=== PATIENT | male | born 1950 | race Caucasian/White ===

== ENCOUNTER 2017-01-13 07:58 | Emergency (ER) | payer OTHER ==
[~2017-01-13] VITALS: Ht 172.7 cm; Wt 61.2 kg
[~2017-01-13 07:58] MED LIST: DIAZ10TA PO; HYDR-1421 PO
[2017-01-13] MEDS ORDERED: MORPHINE SULFATE 4 MG/ML SYRG ONE ×2 (08:43→12:12)
[2017-01-13] MEDS ORDERED: MORPHINE SULFATE 4 MG/ML SYRG IM ONE (08:45)
[2017-01-13 10:01] LABS: DEFINITIVE VIEW TRANSMISSION; Hematocrit 34.7 % (41.0-53.0); Hemoglobin 11.2 g/dL (13.5-17.5); Mean Corpuscular Hemoglobin 33.1 pg (28.0-32.0); Mean Corpuscular Hgb Conc. 32.2 g/dL (32.0-36.0); Mean Platelet Volume 7.9 fL (7.4-10.4); Platelet Count (auto) 409 10^3/uL (140-450); Red Cell Distribution Width 17.3 % (11.6-16.0); SUSPECT VIEW TRANSMISSION; White Blood Cell 15.4 10^3/uL (4.4-10.8)
[2017-01-13 10:15] LABS: Albumin 2.5 g/dL (3.4-5.0); BUN/Creatinine Ratio 27.4; Bilirubin, Total 0.3 mg/dL (0.2-1.0); Calcium 7.9 mg/dL (8.5-10.1); Potassium 3.7 mmol/L (3.5-5.1); Total Protein 7.4 g/dL (6.4-8.2)
[2017-01-13 11:13] LABS: Metamyelocytes % 0; Myelocytes % 0; Promyelocytes % 0; Reactive Lymphocytes 0
[2017-01-13 11:17] LABS: Anisocytosis Slight; Burr Cells FEW; Macrocytosis Slight; Ovalocytes FEW; Platelet Estimate Adequate
[2017-01-13] MEDS ORDERED: MORPHINE SULFATE 4 MG/ML SYRG IV ONE (12:15)
[2017-01-13 12:20] VITALS: BP 98/52
== END 2017-01-13 15:35 | disposition home or self-care (01) ==
LOC: EDBD 07:58 → ER 07:58
DX: S42.212A Unspecified displaced fracture of surgical neck of left humerus, initial encounter for closed fracture (principal); M19.90 Unspecified osteoarthritis, unspecified site; J44.9 Chronic obstructive pulmonary disease, unspecified; R40.1 Stupor; W18.39XA Other fall on same level, initial encounter; Y93.89 Activity, other specified; Y92.098 Other place in other non-institutional residence as the place of occurrence of the external cause; Y99.8 Other external cause status
CPT/HCPCS: 36415; 70450; 73060; 80053; 85007; 85027; 94761; 96372; 96374; 99285; J2270

== ENCOUNTER 2020-06-11 10:46 | Inpatient (IN) | payer MEDICARE, OTHER ==
[~2020-06-11] VITALS: Ht 170.2 cm; Wt 66.0 kg
[~2020-06-11 10:46] MED LIST changes: -DIAZ10TA PO; -HYDR-1421 PO; +MIRT1TAB40 PO; +TAMS0.4C36 PO
[2020-06-11 11:39] LABS: Basophils # (auto) 0.1 10 ^3/uL (0-0.2); Eosinophils # (auto) 0.3 10 ^3/uL (0-0.8); Eosinophils % (auto) 3.2 % (0.0-7.0); Hematocrit 33.9 % (41.0-53.0); Lymphocytes # (auto) 2.5 10 ^3/uL (0.4-5.4); Lymphocytes % (auto) 26.8 % (10.0-50.0); Mean Corpuscular Hemoglobin 32.6 pg (28.0-32.0); Mean Corpuscular Hgb Conc. 32.5 g/dL (32.0-36.0); Mean Corpuscular Volume 100.3 fL (80.0-100.0); Monocytes # (auto) 0.6 10 ^3/uL (0-1.3); Monocytes % (auto) 6.8 % (0.0-12.0); Neutrophils # (auto) 5.7 10 ^3/uL (1.6-8.6); Neutrophils % (auto) 62.2 % (37.0-80.0); Platelet Count (auto) 337 10^3/uL (140-450); Red Blood Cells 3.38 10^6/uL (4.5-5.90); White Blood Cell 9.2 10^3/uL (4.4-10.8)
[2020-06-11 11:49] LABS: Albumin 2.7 g/dL (3.4-5.0); Anion Gap 3 (5-15); Blood Urea Nitrogen 18 mg/dL (7-18); Calcium 7.7 mg/dL (8.5-10.1); Carbon Dioxide 25 mmol/L (21-32); Chloride 112 mmol/L (98-107); Glucose 112 mg/dL (74-106); Potassium 4.4 mmol/L (3.5-5.1); Sodium 140 mmol/L (136-145)
[2020-06-11 11:54] LABS: Alanine Aminotransferase 19 U/L (16-61); Alkaline Phosphatase 245 U/L (45-117); Aspartate Aminotransferase 20 U/L (15-37); Bilirubin, Total 0.4 mg/dL (0.2-1.0); GFR African American 164 mL/min; GFR Non-African American 136 mL/min; Total Protein 6.8 g/dL (6.4-8.2)
[2020-06-11 12:01] LABS: INR 1.13 (0.9-1.15); Partial Thromboplastin Time 26.8 sec (23.0-31.2)
[2020-06-11] MEDS ORDERED: DOXYCYCLINE 100MG/250ML 250 ML IV ONE (12:30)
[2020-06-11] MEDS ORDERED: ZINC SULFATE 220mg CAP or TAB PO ONE (12:30)
[2020-06-11] MEDS ORDERED: ASCORBIC ACID 500 MG TAB PO ONE (12:30)
[2020-06-11] MEDS ORDERED: NITROGLYCERIN 0.4 MG SL TAB SL PRN ×2 (15:15→16:30)
[2020-06-11] MEDS ORDERED: MORPHINE SULF INJ 2 MG/ML SYRINGE 1ML IV PRN ×2 (15:15→16:30)
[2020-06-11] MEDS ORDERED: ENOXAPARIN SOD 40 MG/0.4 ML SYRINGE SC ONE (16:30)
[2020-06-11] MEDS ORDERED: DOCUSATE SOD 100 MG CAP PO PRN (16:30)
[2020-06-11] MEDS ORDERED: ACETAMINOPHEN 325 MG TAB PO PRN (16:30)
[2020-06-11] MEDS ORDERED: PANTOPRAZOLE 40 MG/10 ML VIAL INJ IV ONE (16:30)
[2020-06-11] MEDS ORDERED: LORazepam 0.5 MG TAB PO PRN (16:30)
[2020-06-11] MEDS ORDERED: CALCIUM GLUC 4.65meq/50ml D5AE 50 ML IV ONE (16:30)
[2020-06-11] MEDS: SODIUM CHLORIDE 0.9% 1,000 ML IV SCH (16:30)
[2020-06-11] MEDS ORDERED: ALUM & MAG HYDROX-SIMETH LIQ(MAALOX) 30 ML PO PRN (16:30)
[2020-06-11] MEDS ORDERED: cefTRIAXone 1GM/50ML D5W 50 ML IV ONE (16:30)
[2020-06-11] MEDS ORDERED: THIAMINE HCL 100 MG TAB PO ONE (16:45)
[2020-06-11 16:56] LABS: Cholesterol 95 mg/dL (< 200); HDL Cholesterol 36 mg/dL (40-59); LDL Cholesterol 59 mg/dL (< 100); Triglycerides 48 mg/dL (< 150)
[2020-06-11] MEDS ORDERED: AZITHROMYCIN 500MG/ 250ML 250 ML IV ONE (17:00)
[2020-06-11] MEDS ORDERED: SIMV-8 PO (17:31)
[2020-06-11] MEDS ORDERED: MORP1TAB12 PO (17:31)
[2020-06-11] MEDS ORDERED: PANT40T PO (17:31)
[2020-06-11] MEDS ORDERED: DOCU-55 PO (17:31)
[2020-06-11] MEDS ORDERED: HYDR-392 PO (17:31)
[2020-06-11] MEDS ORDERED: PROM25TA5 PO (17:31)
[2020-06-11 17:56] LABS: Urine WBC None Seen /hpf (0 - 3)
[2020-06-11 18:03] LABS: Urine Bacteria NONE SEEN /hpf (None Seen); Urine Blood Negative /uL (Negative); Urine Hyaline Cast FEW /lpf (0 - 2); Urine Mucus FEW (None Seen); Urine Specific Gravity 1.016 (1.001-1.035)
[2020-06-11 18:16] VITALS: BP 123/84
[2020-06-11 18:20] LABS: Alcohol, Urine < 3.0 mg/dL (0-10); Amphetamine Screen, Urine NEGATIVE (NEGATIVE); Barbiturate Scree,Urine NEGATIVE (NEGATIVE); Benzodiazephine Screen, Urine POSITIVE (NEGATIVE); Cannabinoid Screen, Urine NEGATIVE (NEGATIVE); Cocaine Screen, Urine NEGATIVE (NEGATIVE); Phencyclidine Screen, Urine NEGATIVE (NEGATIVE)
[2020-06-11 18:26] LABS: Opiate Scree,Urine POSITIVE (NEGATIVE)
--- NOTE | 2020-06-11 18:42 | NUR ---
Telemetry admit from [facility] admitted to Telemetry unit after SBAR received. Patient oriented to Latricia Baltazar primary RN, unit, room, bed, and unit policies regarding patient care and visiting hours. Patient now on continuous telemetry monitoring, tele box #5. Bed set to lowest position/locked, bedside rails up x2, call light within reach. Instructed patient to call for assistance. Patient verbalized understanding. Will continue to monitor q 1hr and prn.
--- NOTE | 2020-06-11 19:14 | NUR ---
ADMISSION PICTURE TAKEN.
--- NOTE | 2020-06-11 19:30 | NUR ---
Opening Shift Note Received report from sin Mejias RN. Assumed care of patient, awake and alert. No S/S of distress/SOB or pain. Instructed on POC and to call for assist PRN, will continue to monitor for changes Q1hr and PRN. Bed placed in lowest position, bed alarm turned on and call light within reach.
[2020-06-11] MEDS: TAMSULOSIN HYDROCHLORIDE 0.4 MG CAP PO SCH (19:42)
[2020-06-11] MEDS: CALCIUM W/VIT D (600MG/400IU) TAB PO SCH (19:42)
[2020-06-11] MEDS: HYDROcodone-ACET 5/325MG TAB PO PRN (19:50)
[2020-06-11 20:00] VITALS: BP 88/61
--- NOTE | 2020-06-11 20:30 | NUR ---
Patient is asking for morphine for pain of 5/10. Patient just received at 1940 norco for pain as ordered and patient's blood pressure is low 88/61. Advise patient that he just had norco and that he cannot have any morphine because his blood pressure is low. Patient verbalized understanding. No complains at this time.
[2020-06-11] MEDS: ATORVASTATIN 20 MG TAB PO SCH (21:55)
[2020-06-11 22:00] VITALS: BP 88/61
[2020-06-12 04:52] VITALS: BP 87/54
--- NOTE | 2020-06-12 05:33 | NUR ---
Report given to Jonathan ESTRADA, Steph.
--- NOTE | 2020-06-12 05:43 | NUR ---
Patient transferred to [facility] accompanied by JIN Vázquez with all personal belongings. No distress noted at time of transfer.
--- NOTE | 2020-06-12 05:50 | NUR ---
Patient arrived to room 278B Patient A&Ox4, respirations even and non-labored with no s/s of distress at this time. Patient on 2L NC. Noted Optifoam to sacrum and along spine due to bony processes along the spine. IV to right AC, patent and intact. Discussed POC, oriented to bed, call light, bedstand and phone. Urinal bedside. Bed in lowest locked position with 2 side rails up, call light within reach. Advised patient to call for assistance. Will continue to monitor Q1hr and PRN. Addendum: 06/12/20 at 0648 by POOJA ARORA RN RN Patient VS: BP 98/59, HR 71, RR 20, 99%, T 97.9
--- NOTE | 2020-06-12 07:45 | NUR ---
Closing shift note Patient resting, respirations even and non-labored with no s/s of distress at this time. Endorsed care to day shift RN.
[2020-06-12 08:00] VITALS: BP 101/73
[2020-06-12] MEDS: CALCIUM W/VIT D (600MG/400IU) TAB PO SCH ×2 (08:20→18:11)
[2020-06-12] MEDS ORDERED: ENOXAPARIN SOD 40 MG/0.4 ML SYRINGE SC SCH (10:00)
[2020-06-12] MEDS: SODIUM CHLORIDE 0.9% 1,000 ML IV SCH (10:34)
[2020-06-12] MEDS: PANTOPRAZOLE 40 MG/10 ML VIAL INJ IV SCH (10:34)
[2020-06-12] MEDS: cefTRIAXone 1GM/50ML D5W 50 ML IV SCH (10:34)
[2020-06-12] MEDS: FOLIC ACID 1 MG TAB PO SCH (10:35)
[2020-06-12] MEDS: CYANOCOBALAMIN 500 MCG TAB PO SCH (10:35)
[2020-06-12] MEDS: THIAMINE HCL 100 MG TAB PO SCH (10:35)
[2020-06-12] MEDS: AZITHROMYCIN 500MG/ 250ML 250 ML IV SCH (10:40)
[2020-06-12] MEDS: HYDROcodone-ACET 5/325MG TAB PO PRN (10:41)
--- NOTE | 2020-06-12 11:56 | NUR ---
WOUND CARE NOTE: WOUND CARE IN TO SEE PATIENT AT THIS TIME PER WOUND CARE REQUEST. PATIENT ADMITTED TO [facility] FOR ACUTE PNEUMONIA. BEDSIDE NURSE NOTED SKIN INTEGRITY ISSUES UPON ADMISSION. PHOTOGRAPHS TAKEN AT THAT TIME FOR REFERENCE. PATIENT CHANTAL SCORE IS 19. PATIENT NOTED TO HAVE A SKIN TEAR TO THE RIGHT BUTTOCK/SACRUM AND A HEALED SKIN TEAR TO THE MEDIAL BACK. BOTH SKIN TEARS CLEANSED WITH NORMAL SALINE, PATTED DRY WITH STERILE GAUZE, ZGUARD BARRIER CREAM APPLIED, COVERED WITH OPTIFOAM GENTLE DRESSINGS. WOUND STATS CAN BE FOUND IN ATTACHED ASSESSMENT. RECOMMEND: REDISTRIBUTE PRESSURE UTILIZING PILLOWS AND WEDGES. DAILY/PRN DRESSING CHANGE TO SACRUM AND MEDIAL BACK. SKIN/WOUND CARE PLAN. CONTINUED MONITORING BY WOUND CARE TEAM. Addendum: 06/12/20 at 1645 by ANDREINA BARAKAT RN RN Amended: Links added.
[2020-06-12 12:00] VITALS: BP 101/76
--- NOTE | 2020-06-12 12:03 | NUR ---
Nutrition Consult Consider adding MVI and Vitamin C 500 mg BID Est energy needs 0597-9692 kcal (25-30 kcal/kg BW 67.2kg) ESt protein needs 54-67g (0.8-1g/kg BW 67.2kg) Will reassess prn. Addendum: 06/12/20 at [address] Amended: Links added.
[2020-06-12] MEDS: MORPHINE SULF INJ 2 MG/ML SYRINGE 1ML IV PRN ×3 (14:45→22:56)
--- NOTE | 2020-06-12 14:50 | NUR ---
Pulmonology MD Bales at bedside, aware of patient status. New orders for CT Angio received. Per MD Bales, request medical records from [facility] from last visit. Will carry out new orders.
--- NOTE | 2020-06-12 15:00 | NUR ---
Book Solicitor ANSHUL Stokes at bedside, aware of patient status. BREWMASTER Divya recommended patient to have a heart angio however, patient refused at this time. Divya discussed risks of not having procedure done, patient verbalized understanding. Divya recommended patient to follow-up with Cardiology upon discharge. Patient verbalized understanding. Will cont to monitor patient.
[2020-06-12 16:51] VITALS: BP 111/73
[2020-06-12] MEDS: TAMSULOSIN HYDROCHLORIDE 0.4 MG CAP PO SCH (18:11)
--- NOTE | 2020-06-12 20:00 | NUR ---
Opening Shift Note Assumed care of patient, awake and alert. No S/S of distress/SOB or pain. Patient assisted to use toilet. patient is moderate assist unsteady gait. Patient assisted back to bed . patient had yellow urine output. Instructed on POC and to call for assist PRN, will continue to monitor for changes Q1hr and PRN. Fall precautions in place and call light within reach. bed alarm on.
[2020-06-12] MEDS: ATORVASTATIN 20 MG TAB PO SCH (21:51)
[2020-06-12] MEDS: APIXABAN 5 MG TAB PO SCH (21:51)
[2020-06-12 22:05] VITALS: BP 109/65
--- NOTE | 2020-06-12 22:56 | NUR ---
patient medicated for pain 8 to right leg/hip chronic pain.
--- NOTE | 2020-06-12 23:01 | NUR ---
patient is alert and orientated times 4. informed patient of scheduled ct angio of the chest and that he must remain npo for 4hours. patient stated " i talked to the dr and told him i do not want that." patient refused to remain npo. patient educated and patient refused.
--- NOTE | 2020-06-12 23:26 | NUR ---
pain pain reassessment 0/10 patient sleeping no signs of sob distress or pain. bilateral chest rise and fall
[2020-06-13] MEDS: MORPHINE SULF INJ 2 MG/ML SYRINGE 1ML IV PRN ×4 (02:57→17:28)
--- NOTE | 2020-06-13 02:57 | NUR ---
pain 9/10 pain to left hip aching. patient medicated for pain
--- NOTE | 2020-06-13 03:27 | NUR ---
pain pain reassessment 0/10 pain
[2020-06-13 05:00] VITALS: BP 108/74
--- NOTE | 2020-06-13 07:18 | NUR ---
report given to dayshift rn patient denies sob distress or pain
[2020-06-13] MEDS: CALCIUM W/VIT D (600MG/400IU) TAB PO SCH ×2 (07:50→17:27)
--- NOTE | 2020-06-13 07:50 | NUR ---
RECEIVED PATIENT ALERT AND ORIENTED X4, NOT IN DISTRESS, WHEEZING SOUNDS IN BILATERAL LUNG LOBES, RR=18 SAT=95%, DEEP BREATHING AND COUGHING ENCOURAGED, DEMONSTRATED AND VERBALIZED UNDERSTANDING, DENIED SOB AND CHEST PAIN, HEART RATE=78 A FIB ON TELE MONITOR, ABDOMEN SOFT WITH ACTIVE BS, TOLERATED BREAKFAST WELL, LAST BM=06/11/20 REPORTED, SKIN MIDDLE UPPER BACK SKIN TEAR NOTED KEEP CLEAN AND DRY AND COVERED WITH OPTIFOAM DRESSING, RT. BUTTOCK SKIN TEAR COVERED WITH OPTI FOAM DRESSING ORDERED, REDIAL AND PEDAL PULSES PALPABLE, RESTING ON BED, HEAD OF BED ELEVATED, BED ON LOW POSITION, RAILS UP X2, CALL LIGHT ON REACH, WILL CONTINUE MONITORING.
[2020-06-13] MEDS: ONDANSETRON HCL 4 MG/2 ML VIAL IV PRN ×3 (07:58→17:28)
[2020-06-13 09:00] VITALS: BP 112/61
[2020-06-13] MEDS: PANTOPRAZOLE 40 MG/10 ML VIAL INJ IV SCH (10:29)
[2020-06-13] MEDS: AZITHROMYCIN 500MG/ 250ML 250 ML IV SCH (10:29)
[2020-06-13] MEDS: APIXABAN 5 MG TAB PO SCH (10:32)
[2020-06-13] MEDS: THIAMINE HCL 100 MG TAB PO SCH (10:32)
[2020-06-13] MEDS: FOLIC ACID 1 MG TAB PO SCH (10:32)
[2020-06-13] MEDS: CYANOCOBALAMIN 500 MCG TAB PO SCH (10:33)
[2020-06-13] MEDS: HYDROcodone-ACET 5/325MG TAB PO PRN (10:36)
[2020-06-13] MEDS: cefTRIAXone 1GM/50ML D5W 50 ML IV SCH (10:36)
--- NOTE | 2020-06-13 12:30 | NUR ---
RESTING ON BED, C/O BACK PAIN L=8, MORPHINE IV PRN AND NORCO PO X PROVIDED, PAIN LEVEL WAS REPORTED NO CHANGE L=04/24, REFUSED CT ANGIO CHEST ORDERED, DR. JUAREZ WAS NOTIFIED AND A MORFIN, PENDING D/C REPORTED BY DR. JUAREZ, NO D/C ORDER NOTED YET, WILL CONTINUE MONITORING.
[2020-06-13 13:00] VITALS: BP 113/76
[2020-06-13] MEDS ORDERED: APIX5TAB PO (14:22)
[2020-06-13] MEDS ORDERED: AMOX500T86 PO (14:22)
[2020-06-13] MEDS ORDERED: DOXY-286 PO (14:31)
--- NOTE | 2020-06-13 16:00 | NUR ---
PENDING D/C, MILKA WAS CALLED ON [phone] NO RESPONSE AND VOICE MAIL IS FULL, PATIENT NOTIFIED , WILL CONTINUE MONITORING.
[2020-06-13 16:50] VITALS: BP 98/69
[2020-06-13] MEDS: TAMSULOSIN HYDROCHLORIDE 0.4 MG CAP PO SCH (17:27)
--- NOTE | 2020-06-13 17:30 | NUR ---
WOUND CLEANED AND DRESSING WAS CHANGED ORDERED, D/C EVALUATION PICTURES WERE TAKEN, D/C IV AND TELE, DISCHARGE INSTRUCTIONS AND EDUCATION PROVIDED, WAITING FOR RIDE TO BE D/C.
--- NOTE | 2020-06-13 19:01 | NUR ---
D/C IV AND TELE, DISCHARGE INSTRUCTIONS AND EDUCATION PROVIDED, VERBALIZED UNDERSTANDING, FOLLOW UP WITH PCP WILL BE DONE BY CALLING FROM HOME REPORTED, VS T=98.2 RR=18 SAT= 95%, P=75 EB=714/76, NOT IN DISTRESS, DENIED PAIN, D/C ON WC ACCOMPANIED BY , TOOK ALL BELONGINGS AND LEFT NOTHING BEHIND.
== END 2020-06-13 18:52 | disposition home or self-care (01) | DRG 193 ==
LOC: ER 10:46 → TELE 10:47 → TELE-EAST 18:39 → TELE-WESTW 06-12 05:45
PROVIDERS: ADMIT Hospitalist; ATTEND Internal Medicine Nephrology
DX: J15.9 Unspecified bacterial pneumonia (principal); J96.01 Acute respiratory failure with hypoxia; I50.41 Acute combined systolic (congestive) and diastolic (congestive) heart failure; I82.502 Chronic embolism and thrombosis of unspecified deep veins of left lower extremity; J44.0 Chronic obstructive pulmonary disease with (acute) lower respiratory infection; J98.11 Atelectasis; N13.30 Unspecified hydronephrosis; I11.0 Hypertensive heart disease with heart failure; D53.9 Nutritional anemia, unspecified; E78.5 Hyperlipidemia, unspecified; F17.200 Nicotine dependence, unspecified, uncomplicated; F32.9 Major depressive disorder, single episode, unspecified; F41.9 Anxiety disorder, unspecified; G54.0 Brachial plexus disorders; H54.8 Legal blindness, as defined in USA; I25.9 Chronic ischemic heart disease, unspecified; I48.91 Unspecified atrial fibrillation; K21.9 Gastro-esophageal reflux disease without esophagitis; K27.7 Chronic peptic ulcer, site unspecified, without hemorrhage or perforation; K29.70 Gastritis, unspecified, without bleeding; K59.04 Chronic idiopathic constipation; M19.90 Unspecified osteoarthritis, unspecified site; N40.0 Benign prostatic hyperplasia without lower urinary tract symptoms; Z96.649 Presence of unspecified artificial hip joint; Z96.659 Presence of unspecified artificial knee joint; K80.20 Calculus of gallbladder without cholecystitis without obstruction; Z20.828 Contact with and (suspected) exposure to other viral communicable diseases; Z79.01 Long term (current) use of anticoagulants; Z80.1 Family history of malignant neoplasm of trachea, bronchus and lung; Z91.19 Patient's noncompliance with other medical treatment and regimen; Z82.49 Family history of ischemic heart disease and other diseases of the circulatory system; Z79.891 Long term (current) use of opiate analgesic
CPT/HCPCS: 36415; 71045; 80053; 80061; 80307; 81001; 83036; 83605; 83735; 83880; 84484; 85025; 85610; 85730; 87040; 87086; 87426; 93005; 93306; 93970; 96365; C9113; G0378; J0696; J2405; J3490

== ENCOUNTER 2020-09-29 05:43 | Inpatient (IN) | payer OTHER ==
[~2020-09-29] VITALS: Ht 175.3 cm; Wt 68.2 kg
[~2020-09-29 05:43] MED LIST changes: +AMOX500T86 PO; +APIX5TAB PO; +DOCU-55 PO; +DOXY-286 PO; +HYDR-392 PO; +MORP1TAB12 PO; +PANT40T PO; +PROM25TA5 PO; +SIMV-8 PO
[2020-09-29] MEDS ORDERED: MORPHINE SULF INJ 2 MG/ML SYRINGE 1ML IV ONE (09:00)
[2020-09-29] MEDS ORDERED: ONDANSETRON HCL 4 MG/2 ML VIAL IV ONE (09:00)
[2020-09-29 09:15] LABS: Basophils # (auto) 0.1 10 ^3/uL (0-0.2); Basophils % (auto) 0.8 % (0.0-2.0); Eosinophils # (auto) 0.2 10 ^3/uL (0-0.8); Eosinophils % (auto) 1.6 % (0.0-7.0); Hematocrit 30.8 % (41.0-53.0); Lymphocytes # (auto) 1.5 10 ^3/uL (0.4-5.4); Lymphocytes % (auto) 15.2 % (10.0-50.0); Mean Corpuscular Hemoglobin 32.5 pg (28.0-32.0); Mean Corpuscular Hgb Conc. 32.6 g/dL (32.0-36.0); Mean Corpuscular Volume 99.6 fL (80.0-100.0); Monocytes # (auto) 1.3 10 ^3/uL (0-1.3); Monocytes % (auto) 13.1 % (0.0-12.0); Neutrophils # (auto) 6.7 10 ^3/uL (1.6-8.6); Neutrophils % (auto) 69.3 % (37.0-80.0); Platelet Count (auto) 337 10^3/uL (140-450); Red Blood Cells 3.09 10^6/uL (4.5-5.90); Red Cell Distribution Width 18.9 % (11.8-14.3); White Blood Cell 9.6 10^3/uL (4.4-10.8)
[2020-09-29 09:35] LABS: Albumin 2.8 g/dL (3.4-5.0); Anion Gap 4 (5-15); Aspartate Aminotransferase 18 U/L (15-37); BUN/Creatinine Ratio 26.7; Blood Urea Nitrogen 16 mg/dL (7-18); Calcium 7.9 mg/dL (8.5-10.1); Carbon Dioxide 26 mmol/L (21-32); Chloride 107 mmol/L (98-107); GFR African American 170 mL/min; GFR Non-African American 141 mL/min; Glucose 90 mg/dL (74-106); Potassium 4.6 mmol/L (3.5-5.1); Sodium 137 mmol/L (136-145)
[2020-09-29 09:36] LABS: Urine Bacteria NONE SEEN /hpf (None Seen); Urine Blood Negative /uL (Negative); Urine Specific Gravity 1.017 (1.001-1.035); Urine WBC <1 /hpf (0 - 3)
[2020-09-29 09:39] LABS: Alanine Aminotransferase 16 U/L (16-61); Alkaline Phosphatase 183 U/L (45-117); Bilirubin, Total 0.6 mg/dL (0.2-1.0); Total Protein 7.4 g/dL (6.4-8.2)
[2020-09-29] MEDS ORDERED: NITROGLYCERIN 0.4 MG SL TAB SL PRN ×2 (12:45→15:15)
[2020-09-29] MEDS ORDERED: MORPHINE SULF INJ 2 MG/ML SYRINGE 1ML IV PRN ×2 (12:45→15:15)
[2020-09-29] MEDS ORDERED: LORazepam 2MG/ML-1ML VIAL IV ONE (13:30)
[2020-09-29] MEDS ORDERED: TAMS1CAP25 PO (15:12)
[2020-09-29] MEDS ORDERED: CHOL20009 PO (15:14)
[2020-09-29] MEDS ORDERED: ONDANSETRON HCL 4 MG/2 ML VIAL IV PRN (15:15)
[2020-09-29] MEDS ORDERED: hydrALAZINE HCL 20 MG/ML VL IV PRN (15:15)
[2020-09-29] MEDS ORDERED: CALC-30 PO (15:15)
[2020-09-29] MEDS: SODIUM CHLORIDE 0.9% 1,000 ML IV SCH ×2 (15:15→19:20)
[2020-09-29] MEDS ORDERED: ASPI-498 PO (15:15)
[2020-09-29] MEDS ORDERED: LORazepam 2MG/ML-1ML VIAL IV PRN (15:15)
[2020-09-29 16:06] LABS: INR 1.33 (0.9-1.15); Partial Thromboplastin Time 28.9 sec (23.0-31.2)
[2020-09-29] MEDS: MORPHINE SULF INJ 2 MG/ML SYRINGE 1ML IV PRN (21:57)
[2020-09-30] MEDS: MORPHINE SULF INJ 2 MG/ML SYRINGE 1ML IV PRN ×3 (09:24→19:03)
[2020-09-30] MEDS ORDERED: PANTOPRAZOLE 40 MG/10 ML VIAL INJ IV SCH (10:00)
[2020-09-30] MEDS ORDERED: PHYTONADIONE(VitK) ORAL Susp 10mg/10ml(1mg/ml) PO ONE (15:30)
[2020-09-30] MEDS: HYDROcodone-ACET 7.5/325MG TAB PO PRN (16:15)
[2020-09-30 16:55] VITALS: BP 104/75
[2020-09-30] MEDS: Ensure HIGH Protein Chocolate 8oz Bottle PO SCH (19:03)
[2020-09-30 22:00] VITALS: BP 90/60
[2020-09-30] MEDS: ATORVASTATIN 20 MG TAB PO SCH (22:01)
[2020-09-30] MEDS: MORPHINE SULF 15mg ER tab PO SCH (23:06)
[2020-10-01] MEDS: SODIUM CHLORIDE 0.9% 1,000 ML IV SCH ×2 (04:44→18:00)
[2020-10-01 05:00] VITALS: BP 98/64
[2020-10-01] MEDS: MORPHINE SULF INJ 2 MG/ML SYRINGE 1ML IV PRN ×2 (07:57→16:33)
[2020-10-01 08:00] VITALS: BP 96/64
[2020-10-01] MEDS: Ensure HIGH Protein Chocolate 8oz Bottle PO SCH ×3 (08:00→18:00)
[2020-10-01 08:25] LABS: Basophils # (auto) 0.1 10 ^3/uL (0-0.2); Basophils % (auto) 0.9 % (0.0-2.0); Eosinophils # (auto) 0.3 10 ^3/uL (0-0.8); Eosinophils % (auto) 3.1 % (0.0-7.0); Lymphocytes # (auto) 1.5 10 ^3/uL (0.4-5.4); Mean Corpuscular Hemoglobin 32.9 pg (28.0-32.0); Mean Corpuscular Hgb Conc. 33.3 g/dL (32.0-36.0); Mean Corpuscular Volume 98.8 fL (80.0-100.0); Monocytes # (auto) 1.2 10 ^3/uL (0-1.3); Monocytes % (auto) 13.7 % (0.0-12.0); Neutrophils # (auto) 5.8 10 ^3/uL (1.6-8.6); Neutrophils % (auto) 65.3 % (37.0-80.0); Platelet Count (auto) 318 10^3/uL (140-450); Red Blood Cells 3.34 10^6/uL (4.5-5.90); Red Cell Distribution Width 19.1 % (11.8-14.3); White Blood Cell 8.8 10^3/uL (4.4-10.8)
[2020-10-01 08:49] LABS: INR 1.38 (0.9-1.15)
[2020-10-01 09:01] LABS: Potassium 4.2 mmol/L (3.5-5.1)
[2020-10-01 09:06] LABS: Albumin 2.7 g/dL (3.4-5.0); BUN/Creatinine Ratio 23.3; Bilirubin, Total 1.2 mg/dL (0.2-1.0); Calcium 7.9 mg/dL (8.5-10.1); Total Protein 6.9 g/dL (6.4-8.2)
[2020-10-01] MEDS: MORPHINE SULF 15mg ER tab PO SCH ×2 (10:18→22:34)
[2020-10-01] MEDS: PANTOPRAZOLE 40 MG TAB PO SCH (10:18)
[2020-10-01] MEDS: PHYTONADIONE(VitK) ORAL Susp 10mg/10ml(1mg/ml) PO SCH (14:06)
[2020-10-01 16:00] VITALS: BP 107/72
[2020-10-01] MEDS: ATORVASTATIN 20 MG TAB PO SCH (22:34)
[2020-10-02] VITALS (13 sets, daily range): BP systolic 75–114; BP diastolic 46–78
[2020-10-02] MEDS: MORPHINE SULF INJ 2 MG/ML SYRINGE 1ML IV PRN (04:21)
[2020-10-02] MEDS: SODIUM CHLORIDE 0.9% 1,000 ML IV SCH (06:01)
[2020-10-02] MEDS: Ensure HIGH Protein Chocolate 8oz Bottle PO SCH ×3 (08:00→18:23)
[2020-10-02 08:16] LABS: Basophils # (auto) 0.1 10 ^3/uL (0-0.2); Basophils % (auto) 0.8 % (0.0-2.0); Eosinophils # (auto) 0.2 10 ^3/uL (0-0.8); Hematocrit 30.5 % (41.0-53.0); Hemoglobin 10.2 g/dL (13.5-17.5); Lymphocytes # (auto) 1.9 10 ^3/uL (0.4-5.4); Lymphocytes % (auto) 19.1 % (10.0-50.0); Mean Corpuscular Hgb Conc. 33.5 g/dL (32.0-36.0); Mean Corpuscular Volume 98.4 fL (80.0-100.0); Monocytes # (auto) 0.9 10 ^3/uL (0-1.3); Monocytes % (auto) 9.3 % (0.0-12.0); Neutrophils # (auto) 6.9 10 ^3/uL (1.6-8.6); Neutrophils % (auto) 68.8 % (37.0-80.0); Nucleated Red Blood Cells % 0.1 %; Platelet Count (auto) 320 10^3/uL (140-450)
[2020-10-02 08:32] LABS: INR 1.25 (0.9-1.15)
[2020-10-02] MEDS ORDERED: ONDANSETRON HCL 4 MG/2 ML VIAL ONE (08:33)
[2020-10-02] MEDS ORDERED: PROPOFOL 10 MG/ML 20 ML IV ONE (08:33)
[2020-10-02] MEDS ORDERED: fentaNYL CITRATE 100 MCG/2 ML VL ONE (08:33)
[2020-10-02] MEDS ORDERED: SODIUM CHLORIDE LOCK 10 ML ONE (08:33)
[2020-10-02] MEDS ORDERED: MORPHINE SULF(PF) 0.5MG/ML 10ML VIAL ONE (08:33)
[2020-10-02] MEDS ORDERED: EPINEPHrine HCL 1 MG/1 ML AMP ONE (08:33)
[2020-10-02] MEDS ORDERED: BUPIVACAINE/DEXTROSE MPF 0.75% 2 ML AMP IT ONE (08:33)
[2020-10-02] MEDS ORDERED: MIDAZOLAM HCL 1MG/1ML-2 ML VIAL ONE (08:33)
[2020-10-02 08:45] LABS: BUN/Creatinine Ratio 20.4; Calcium 7.7 mg/dL (8.5-10.1); Potassium 3.6 mmol/L (3.5-5.1)
[2020-10-02] MEDS: BUPIVACAINE 0.25% INJ 50ML VIAL ONE ×2 (08:49→10:44)
[2020-10-02] MEDS ORDERED: TETRACAINE 1% INJ 2 ML VIAL IJ ONE (08:50)
[2020-10-02] MEDS ORDERED: ceFAZolin 1GM/50ML 50 ML IV ONE (09:17)
[2020-10-02] MEDS: PANTOPRAZOLE 40 MG TAB PO SCH (10:00)
[2020-10-02] MEDS: PHYTONADIONE(VitK) ORAL Susp 10mg/10ml(1mg/ml) PO SCH (10:00)
[2020-10-02] MEDS: MORPHINE SULF 15mg ER tab PO SCH ×2 (10:00→22:26)
[2020-10-02] MEDS ORDERED: HYDROmorphone HCL 2 MG/ML VL IV PRN (11:15)
[2020-10-02] MEDS ORDERED: ONDANSETRON HCL 4 MG/2 ML VIAL IV PRN (11:15)
[2020-10-02] MEDS ORDERED: NALOXONE HCL 0.4 MG/ML VIAL IV PRN (11:15)
[2020-10-02] MEDS ORDERED: MORPHINE SULFATE 4 MG/ML SYR/VIAL IV PRN (11:15)
[2020-10-02] MEDS ORDERED: diphenhdrAMINE HCL 50 MG/1 ML VL IV PRN (11:15)
[2020-10-02] MEDS: ceFAZolin 1GM/50ML 50 ML IV SCH ×3 (12:46→22:29)
[2020-10-02] MEDS: SODIUM CHLOR 0.9% PF (SALINE LOCK) 10ML VIAL/SYR IV SCH ×2 (15:09→22:26)
[2020-10-02] MEDS: LACTATED RINGER'S 1,000 ML IV SCH ×2 (15:09→21:00)
[2020-10-02] MEDS: ATORVASTATIN 20 MG TAB PO SCH (22:26)
[2020-10-03] VITALS (16 sets, daily range): BP systolic 67–111; BP diastolic 43–75
[2020-10-03] MEDS ORDERED: ALBUMIN 5% 250 ML IV ONE (01:15)
[2020-10-03] MEDS: SODIUM CHLORIDE 0.9% 1,000 ML IV SCH ×2 (02:35→19:15)
[2020-10-03] MEDS: HYDROcodone-ACET 7.5/325MG TAB PO PRN ×2 (05:35→15:16)
[2020-10-03] MEDS: LACTATED RINGER'S 1,000 ML IV SCH ×2 (05:41→17:00)
[2020-10-03] MEDS: SODIUM CHLOR 0.9% PF (SALINE LOCK) 10ML VIAL/SYR IV SCH ×3 (05:41→22:37)
[2020-10-03] MEDS: Ensure HIGH Protein Chocolate 8oz Bottle PO SCH ×3 (08:00→18:24)
[2020-10-03 10:27] LABS: Basophils # (auto) 0 10 ^3/uL (0-0.2); Basophils % (auto) 0.4 % (0.0-2.0); Eosinophils # (auto) 0.3 10 ^3/uL (0-0.8); Eosinophils % (auto) 2.5 % (0.0-7.0); Hematocrit 29.9 % (41.0-53.0); Hemoglobin 9.9 g/dL (13.5-17.5); Lymphocytes # (auto) 1.7 10 ^3/uL (0.4-5.4); Lymphocytes % (auto) 16.3 % (10.0-50.0); Mean Corpuscular Hemoglobin 32.8 pg (28.0-32.0); Mean Corpuscular Hgb Conc. 33.2 g/dL (32.0-36.0); Monocytes # (auto) 1.2 10 ^3/uL (0-1.3); Monocytes % (auto) 11.2 % (0.0-12.0); Neutrophils # (auto) 7.4 10 ^3/uL (1.6-8.6); Neutrophils % (auto) 69.6 % (37.0-80.0); Platelet Count (auto) 310 10^3/uL (140-450); Red Blood Cells 3.02 10^6/uL (4.5-5.90); Red Cell Distribution Width 19.1 % (11.8-14.3); White Blood Cell 10.6 10^3/uL (4.4-10.8)
[2020-10-03] MEDS: PHYTONADIONE(VitK) ORAL Susp 10mg/10ml(1mg/ml) PO SCH (11:11)
[2020-10-03] MEDS: PANTOPRAZOLE 40 MG TAB PO SCH (11:11)
[2020-10-03] MEDS: MORPHINE SULF 15mg ER tab PO SCH ×2 (11:11→22:36)
[2020-10-03] MEDS: ENOXAPARIN SOD 40 MG/0.4 ML SYRINGE SC SCH (11:11)
[2020-10-03 11:32] LABS: Alanine Aminotransferase 12 U/L (16-61); Alkaline Phosphatase 145 U/L (45-117); Anion Gap 3 (5-15); Aspartate Aminotransferase 18 U/L (15-37); BUN/Creatinine Ratio 20.4; Blood Urea Nitrogen 11 mg/dL (7-18); Carbon Dioxide 27 mmol/L (21-32); Chloride 106 mmol/L (98-107); GFR African American 192 mL/min; GFR Non-African American 159 mL/min; Glucose 156 mg/dL (74-106); Potassium 4.2 mmol/L (3.5-5.1); Sodium 136 mmol/L (136-145)
[2020-10-03 11:33] LABS: Albumin 2.4 g/dL (3.4-5.0); Calcium 7.6 mg/dL (8.5-10.1); Total Protein 6.3 g/dL (6.4-8.2)
[2020-10-03] MEDS: ATORVASTATIN 20 MG TAB PO SCH (22:36)
[2020-10-04] MEDS: HYDROcodone-ACET 7.5/325MG TAB PO PRN ×2 (01:28→18:48)
[2020-10-04] MEDS: LACTATED RINGER'S 1,000 ML IV SCH ×3 (03:00→23:00)
[2020-10-04 05:00] VITALS: BP 91/59
[2020-10-04] MEDS: SODIUM CHLOR 0.9% PF (SALINE LOCK) 10ML VIAL/SYR IV SCH ×3 (05:27→22:00)
[2020-10-04 07:36] LABS: Hematocrit 27.8 % (41.0-53.0); Hemoglobin 9.5 g/dL (13.5-17.5)
[2020-10-04] MEDS: Ensure HIGH Protein Chocolate 8oz Bottle PO SCH ×3 (07:36→18:00)
[2020-10-04 08:00] VITALS: BP 89/50
[2020-10-04 08:26] VITALS: BP 89/50
[2020-10-04] MEDS: PANTOPRAZOLE 40 MG TAB PO SCH (10:04)
[2020-10-04] MEDS: MORPHINE SULF 15mg ER tab PO SCH ×2 (10:04→23:30)
[2020-10-04] MEDS: PHYTONADIONE(VitK) ORAL Susp 10mg/10ml(1mg/ml) PO SCH (10:04)
[2020-10-04] MEDS: ENOXAPARIN SOD 40 MG/0.4 ML SYRINGE SC SCH (10:04)
[2020-10-04] MEDS: SODIUM CHLORIDE 0.9% 1,000 ML IV SCH (10:05)
[2020-10-04 16:18] VITALS: BP 85/51
[2020-10-04 22:00] VITALS: BP 85/47
[2020-10-04] MEDS: ATORVASTATIN 20 MG TAB PO SCH (22:00)
[2020-10-04 23:30] VITALS: BP 104/65
[2020-10-05] MEDS: HYDROcodone-ACET 7.5/325MG TAB PO PRN (04:07)
[2020-10-05] MEDS: SODIUM CHLORIDE 0.9% 1,000 ML IV SCH ×2 (04:47→21:15)
[2020-10-05] MEDS: SODIUM CHLOR 0.9% PF (SALINE LOCK) 10ML VIAL/SYR IV SCH ×3 (05:23→21:26)
[2020-10-05 05:30] VITALS: BP 98/62
[2020-10-05 06:29] LABS: Hematocrit 24.7 % (41.0-53.0); Hemoglobin 8.5 g/dL (13.5-17.5)
[2020-10-05 08:00] VITALS: BP 96/68
[2020-10-05] MEDS: Ensure HIGH Protein Chocolate 8oz Bottle PO SCH ×3 (08:47→17:58)
[2020-10-05] MEDS: MORPHINE SULF 15mg ER tab PO SCH ×2 (09:40→21:27)
[2020-10-05] MEDS: LACTATED RINGER'S 1,000 ML IV SCH ×2 (09:40→19:00)
[2020-10-05] MEDS: ENOXAPARIN SOD 40 MG/0.4 ML SYRINGE SC SCH (09:41)
[2020-10-05] MEDS: PANTOPRAZOLE 40 MG TAB PO SCH (09:41)
[2020-10-05 12:04] VITALS: BP 96/68
[2020-10-05 15:50] VITALS: BP 89/55
[2020-10-05] MEDS: ATORVASTATIN 20 MG TAB PO SCH (21:27)
[2020-10-05 22:00] VITALS: BP 90/62
[2020-10-06] MEDS: HYDROcodone-ACET 7.5/325MG TAB PO PRN ×2 (04:16→17:18)
[2020-10-06] MEDS: SODIUM CHLORIDE 0.9% 1,000 ML IV SCH (04:22)
[2020-10-06 05:00] VITALS: BP 95/68
[2020-10-06] MEDS: SODIUM CHLOR 0.9% PF (SALINE LOCK) 10ML VIAL/SYR IV SCH ×3 (05:21→21:24)
[2020-10-06 08:00] VITALS: BP 102/65
[2020-10-06] MEDS: Ensure HIGH Protein Chocolate 8oz Bottle PO SCH ×3 (08:55→17:50)
[2020-10-06] MEDS: MORPHINE SULF 15mg ER tab PO SCH ×2 (09:35→21:28)
[2020-10-06] MEDS: ENOXAPARIN SOD 40 MG/0.4 ML SYRINGE SC SCH (09:35)
[2020-10-06] MEDS: PANTOPRAZOLE 40 MG TAB PO SCH (09:35)
[2020-10-06 16:00] VITALS: BP 80/59
[2020-10-06 18:00] VITALS: BP 95/73
[2020-10-06] MEDS: ATORVASTATIN 20 MG TAB PO SCH (21:24)
[2020-10-06 22:00] VITALS: BP_SYST 95; BP_SYST 97; BP_DIAS 73
[2020-10-07] MEDS: SODIUM CHLORIDE 0.9% 1,000 ML IV SCH ×2 (02:14→22:37)
[2020-10-07 05:00] VITALS: BP 102/68
[2020-10-07] MEDS: SODIUM CHLOR 0.9% PF (SALINE LOCK) 10ML VIAL/SYR IV SCH ×3 (06:37→21:26)
[2020-10-07] MEDS: Ensure HIGH Protein Chocolate 8oz Bottle PO SCH ×3 (07:47→18:00)
[2020-10-07 08:00] VITALS: BP 110/76
[2020-10-07] MEDS: HYDROcodone-ACET 7.5/325MG TAB PO PRN (08:28)
[2020-10-07] MEDS ORDERED: ALPRAZolam 0.5 MG TAB PO PRN (08:45)
[2020-10-07 09:27] VITALS: BP 110/76
[2020-10-07] MEDS: MORPHINE SULF 15mg ER tab PO SCH ×2 (10:22→21:26)
[2020-10-07] MEDS: PANTOPRAZOLE 40 MG TAB PO SCH (10:23)
[2020-10-07] MEDS: ENOXAPARIN SOD 40 MG/0.4 ML SYRINGE SC SCH (10:23)
[2020-10-07 16:00] VITALS: BP 91/60
[2020-10-07] MEDS: ATORVASTATIN 20 MG TAB PO SCH (21:26)
[2020-10-07 22:00] VITALS: BP 90/63
[2020-10-08] MEDS: HYDROcodone-ACET 7.5/325MG TAB PO PRN (02:49)
[2020-10-08 05:00] VITALS: BP 91/67
[2020-10-08] MEDS: SODIUM CHLOR 0.9% PF (SALINE LOCK) 10ML VIAL/SYR IV SCH (05:54)
[2020-10-08 08:00] VITALS: BP 90/66
[2020-10-08] MEDS: Ensure HIGH Protein Chocolate 8oz Bottle PO SCH (08:00)
[2020-10-08] MEDS: ENOXAPARIN SOD 40 MG/0.4 ML SYRINGE SC SCH (09:55)
[2020-10-08] MEDS: MORPHINE SULF 15mg ER tab PO SCH (09:55)
[2020-10-08] MEDS: PANTOPRAZOLE 40 MG TAB PO SCH (09:55)
== END 2020-10-08 14:10 | DRG 480 ==
LOC: EDUNIT# 05:43 → EDBD 05:43 → ER 05:43 → TELE 12:32 → TELE-CENTR 09-30 16:22
PROVIDERS: ADMIT Emergency Medicine; ATTEND Family Medicine
PROC: 0QS736Z Reposition Left Upper Femur with Intramedullary Internal Fixation Device, Percutaneous Approach (ICD-10-PCS; principal; 2020-10-02 09:32)
DX: S72.142A Displaced intertrochanteric fracture of left femur, initial encounter for closed fracture (principal); N17.0 Acute kidney failure with tubular necrosis; E44.0 Moderate protein-calorie malnutrition; I48.19 Other persistent atrial fibrillation; I48.92 Unspecified atrial flutter; J96.11 Chronic respiratory failure with hypoxia; D68.69 Other thrombophilia; R64 Cachexia; E86.0 Dehydration; I95.9 Hypotension, unspecified; N18.9 Chronic kidney disease, unspecified; I25.10 Atherosclerotic heart disease of native coronary artery without angina pectoris; R54 Age-related physical debility; D63.8 Anemia in other chronic diseases classified elsewhere; W18.39XA Other fall on same level, initial encounter; Y93.01 Activity, walking, marching and hiking; G89.29 Other chronic pain; H54.8 Legal blindness, as defined in USA; I12.9 Hypertensive chronic kidney disease with stage 1 through stage 4 chronic kidney disease, or unspecified chronic kidney disease; Z20.822 Contact with and (suspected) exposure to COVID-19; Z79.891 Long term (current) use of opiate analgesic; Z80.1 Family history of malignant neoplasm of trachea, bronchus and lung; Z68.20 Body mass index [BMI] 20.0-20.9, adult; Y92.091 Bathroom in other non-institutional residence as the place of occurrence of the external cause; Y99.8 Other external cause status; Z96.652 Presence of left artificial knee joint; Z96.641 Presence of right artificial hip joint
CPT/HCPCS: 36415; 51702; 70450; 71045; 72125; 72170; 73030; 73502; 74176; 76001; 80048; 80053; 81001; 83880; 84443; 84484; 85014; 85018; 85025; 85610; 85730; 86850; 86860; 86870; 86880; 86900; 86901; 86905; 86906; 86970; 86971; 86978; 87426; 93005; 96374; 96375; 97110; 97116; 97163; 97530; A4565; G0378; J0171; J0690; J2250; J2405; J2704; J3490

== ENCOUNTER 2021-03-05 14:45 | Inpatient (IN) | payer OTHER ==
[~2021-03-05] VITALS: Ht 200.7 cm; Wt 70.5 kg
[~2021-03-05 14:45] MED LIST changes: -AMOX500T86 PO; -APIX5TAB PO; +ASPI-498 PO; +CALC-30 PO; +CHOL20009 PO; -DOCU-55 PO; -DOXY-286 PO; -MIRT1TAB40 PO; -SIMV-8 PO; -TAMS0.4C36 PO; +TAMS1CAP25 PO
[2021-03-05] MEDS ORDERED: IPRATROPIUM BROM 0.5 MG/2.5ML INH SOL NEB ONE (15:00)
[2021-03-05] MEDS ORDERED: ALBUTEROL SULF 2.5 MG/0.5ML(0.5%) NEB SOLN NEB ONE ×2 (15:00→18:30)
[2021-03-05] MEDS ORDERED: SODIUM CHLORIDE 0.9% 1,000 ML IV ONE ×3 (15:00→18:30)
[2021-03-05] MEDS ORDERED: methylPREDNISolone SOD SUCC 125 MG/2 ML VL IV ONE (15:00)
[2021-03-05 17:55] LABS: Hemoglobin 9.9 g/dL (13.5-17.5)
[2021-03-05 17:57] LABS: Hematocrit 30.7 % (41.0-53.0); Mean Corpuscular Hemoglobin 31.4 pg (28.0-32.0); Mean Corpuscular Hgb Conc. 32.2 g/dL (32.0-36.0); Mean Corpuscular Volume 97.6 fL (80.0-100.0); Red Blood Cells 3.14 10^6/uL (4.5-5.90)
[2021-03-05] MEDS ORDERED: AZITHROMYCIN 500MG/ 250ML 250 ML IV ONE (18:00)
[2021-03-05] MEDS ORDERED: cefTRIAXone 1GM/50ML D5W 50 ML IV ONE (18:00)
[2021-03-05 18:09] LABS: Chloride 107 mmol/L (98-107); Sodium 137 mmol/L (136-145)
[2021-03-05 18:10] LABS: Alanine Aminotransferase 44 U/L (16-61); Albumin 2.9 g/dL (3.4-5.0); Alkaline Phosphatase 610 U/L (45-117); Anion Gap 12 (5-15); Aspartate Aminotransferase 73 U/L (15-37); BUN/Creatinine Ratio 25.2; Bilirubin, Total 1.1 mg/dL (0.2-1.0); Blood Urea Nitrogen 26 mg/dL (7-18); Calcium 8.2 mg/dL (8.5-10.1); Carbon Dioxide 18 mmol/L (21-32); GFR African American 91 mL/min; GFR Non-African American 75 mL/min; Glucose 114 mg/dL (74-106); Total Protein 7.9 g/dL (6.4-8.2)
[2021-03-05 18:13] LABS: Lactic Acid w/Reflex 6.3 mmol/L (0.4-2.0)
[2021-03-05 18:16] LABS: Red Cell Distribution Width 20.7 % (11.8-14.3)
[2021-03-05 18:19] LABS: White Blood Cell 30.4 10^3/uL (4.4-10.8)
[2021-03-05 18:20] LABS: Basophils % (manual) 0 (0.0-2.0); Blast Cells 0; Eosinophils % (manual) 0 (0-7); Metamyelocytes % 0; Myelocytes % 0; Promyelocytes % 0; Reactive Lymphocytes 0
[2021-03-05 18:25] LABS: Urine Bacteria NONE SEEN /hpf (None Seen); Urine Blood Negative /uL (Negative); Urine Hyaline Cast FEW /lpf (0 - 2); Urine Specific Gravity 1.017 (1.001-1.035); Urine WBC 26 /hpf (0 - 3)
[2021-03-05] MEDS ORDERED: SODIUM ZIRCONIUM CYCL 10 GM PAK PO ONE (18:30)
[2021-03-05] MEDS ORDERED: FUROSEMIDE 20 MG/2 ML VIAL IV ONE (18:30)
[2021-03-05] MEDS ORDERED: DEXTROSE (50%) 50ML SYRG IV ONE (18:30)
[2021-03-05] MEDS ORDERED: CLINDAMYCIN 300MG IV 50 ML IV ONE (18:30)
[2021-03-05] MEDS ORDERED: CALCIUM GLUC 1,000mg/50ml-NS 50 ML IV ONE (18:30)
[2021-03-05] MEDS ORDERED: InsuLIN REG 1unit/0.01ml Soln (100units/ml) IV ONE (18:30)
[2021-03-05] MEDS ORDERED: SODIUM BICARBONATE 8.4% INJ 50ML SYRINGE IV ONE (18:30)
[2021-03-05 18:44] LABS: Band Neutrophils % (manual) 2; Lymphocytes % (manual) 10 (10.0-50.0); Monocytes % (manual) 2 (0-12)
[2021-03-05] MEDS ORDERED: VANCOMYCIN PER PHARMACY 0 MG IV SCH (20:15)
[2021-03-05] MEDS ORDERED: MORPHINE SULFATE INJECTION 2 MG/ML SYRG IV PRN (20:15)
[2021-03-05] MEDS ORDERED: NOREPINEPHRINE 8 MG/250ML KIT 250 ML IV SCH (20:15)
[2021-03-05] MEDS ORDERED: NITROGLYCERIN 0.4 MG SL TAB SL PRN (20:15)
[2021-03-05] MEDS ORDERED: SODIUM BICARBONATE 50ML VIAL 50 ML in SOD CHL 0.45% 1,000 ML IV SCH (20:15)
[2021-03-05] MEDS ORDERED: ACETAMINOPHEN 500 MG TAB PO PRN (20:15)
[2021-03-05] MEDS ORDERED: VANCOMYCIN 1GM/250ML 250 ML IV ONE (21:00)
[2021-03-05 21:09] VITALS: BP 85/53
[2021-03-05] MEDS ORDERED: SODIUM BICARBONATE 8.4% INJ 50ML SYRINGE ONE (22:38)
[2021-03-06] VITALS (62 sets, daily range): BP systolic 84–123; BP diastolic 52–83
[2021-03-06 04:35] LABS: Hematocrit 29.3 % (41.0-53.0); Hemoglobin 9.7 g/dL (13.5-17.5); Mean Corpuscular Hemoglobin 32.1 pg (28.0-32.0); Mean Corpuscular Volume 97.3 fL (80.0-100.0); Red Blood Cells 3.01 10^6/uL (4.5-5.90)
[2021-03-06 04:51] LABS: Red Cell Distribution Width 20.6 % (11.8-14.3)
[2021-03-06 04:52] LABS: Basophils % (manual) 0 (0.0-2.0); Blast Cells 0; Eosinophils % (manual) 0 (0-7); Metamyelocytes % 0; Myelocytes % 0; Promyelocytes % 0; Reactive Lymphocytes 0
[2021-03-06 05:18] LABS: BUN/Creatinine Ratio 29.2; Potassium 3.5 mmol/L (3.5-5.1)
[2021-03-06] MEDS: ALBUTEROL SULF 2.5 MG/0.5ML(0.5%) NEB SOLN NEB SCH ×3 (06:26→18:38)
[2021-03-06] MEDS: IPRATROPIUM BROM 0.5 MG/2.5ML INH SOL NEB SCH ×3 (06:26→18:38)
[2021-03-06 07:08] LABS: Band Neutrophils % (manual) 19; Lymphocytes % (manual) 1 (10.0-50.0)
[2021-03-06 07:09] LABS: Monocytes % (manual) 1 (0-12)
[2021-03-06] MEDS: ENOXAPARIN SOD 40 MG/0.4 ML SYRINGE SC SCH (09:17)
[2021-03-06] MEDS: cefTRIAXone 1GM/50ML D5W 50 ML IV SCH (09:17)
[2021-03-06] MEDS: PANTOPRAZOLE 40 MG/10 ML VIAL INJ IV SCH (09:17)
[2021-03-06] MEDS: AZITHROMYCIN 500MG/ 250ML 250 ML IV SCH (10:10)
[2021-03-06] MEDS: HYDROcodone-ACET 5/325MG TAB PO PRN (10:14)
[2021-03-06 11:02] LABS: INR 1.55 (0.9-1.15)
[2021-03-06] MEDS: SODIUM CHLORIDE 0.9% 1,000 ML IV SCH (15:30)
[2021-03-06] MEDS: LACTULOSE 20Gm/30ML SOLN PO SCH (17:48)
[2021-03-06] MEDS: MORPHINE SULFATE INJECTION 2 MG/ML SYRG IV PRN (17:48)
[2021-03-06] MEDS: VANCOMYCIN 750mg/250ml 250 ML IV SCH (18:41)
[2021-03-07] MEDS: LACTULOSE 20Gm/30ML SOLN PO SCH ×4 (00:16→18:26)
[2021-03-07] MEDS: HYDROcodone-ACET 5/325MG TAB PO PRN ×3 (02:13→22:31)
[2021-03-07] MEDS: MORPHINE SULFATE INJECTION 2 MG/ML SYRG IV PRN ×2 (05:27→19:50)
[2021-03-07 05:30] VITALS: BP 113/74
[2021-03-07] MEDS: VANCOMYCIN 750mg/250ml 250 ML IV SCH ×2 (05:46→18:26)
[2021-03-07 06:49] LABS: Basophils # (auto) 0 10 ^3/uL (0-0.2); Eosinophils # (auto) 0 10 ^3/uL (0-0.8); Hematocrit 29.8 % (41.0-53.0); Hemoglobin 9.7 g/dL (13.5-17.5); Lymphocytes # (auto) 1.8 10 ^3/uL (0.4-5.4); Lymphocytes % (auto) 7.7 % (10.0-50.0); Mean Corpuscular Hemoglobin 31.6 pg (28.0-32.0); Mean Corpuscular Hgb Conc. 32.6 g/dL (32.0-36.0); Mean Corpuscular Volume 97.1 fL (80.0-100.0); Monocytes % (auto) 4.3 % (0.0-12.0); Red Blood Cells 3.07 10^6/uL (4.5-5.90); Red Cell Distribution Width 20.9 % (11.8-14.3); White Blood Cell 23.9 10^3/uL (4.4-10.8)
[2021-03-07 07:02] LABS: BUN/Creatinine Ratio 33.3; Calcium 8.1 mg/dL (8.5-10.1); Potassium 3.8 mmol/L (3.5-5.1)
[2021-03-07] MEDS: SODIUM CHLORIDE 0.9% 1,000 ML IV SCH (08:10)
[2021-03-07 09:00] VITALS: BP 109/74
[2021-03-07] MEDS: cefTRIAXone 1GM/50ML D5W 50 ML IV SCH (09:00)
[2021-03-07] MEDS: AZITHROMYCIN 500MG/ 250ML 250 ML IV SCH (10:17)
[2021-03-07] MEDS: PANTOPRAZOLE 40 MG/10 ML VIAL INJ IV SCH (10:17)
[2021-03-07] MEDS: ENOXAPARIN SOD 40 MG/0.4 ML SYRINGE SC SCH (10:18)
[2021-03-07 13:00] VITALS: BP 127/84
[2021-03-07] MEDS: IPRATROPIUM BROM 0.5 MG/2.5ML INH SOL NEB SCH ×2 (15:45→19:49)
[2021-03-07] MEDS: ALBUTEROL SULF 2.5 MG/0.5ML(0.5%) NEB SOLN NEB SCH ×2 (15:45→19:49)
[2021-03-07 17:00] VITALS: BP 116/84
[2021-03-07] MEDS: TAMSULOSIN HYDROCHLORIDE 0.4 MG CAP PO SCH (18:26)
[2021-03-08] MEDS: MORPHINE SULFATE INJECTION 2 MG/ML SYRG IV PRN (02:21)
[2021-03-08 05:00] VITALS: BP 117/77
[2021-03-08] MEDS: LACTULOSE 20Gm/30ML SOLN PO SCH ×5 (05:46→23:39)
[2021-03-08] MEDS: VANCOMYCIN 750mg/250ml 250 ML IV SCH ×2 (05:46→18:00)
[2021-03-08 05:55] LABS: Basophils # (auto) 0.1 10 ^3/uL (0-0.2); Basophils % (auto) 0.4 % (0.0-2.0); Eosinophils # (auto) 0.1 10 ^3/uL (0-0.8); Eosinophils % (auto) 0.6 % (0.0-7.0); Hematocrit 28.8 % (41.0-53.0); Hemoglobin 9.6 g/dL (13.5-17.5); Lymphocytes # (auto) 2.5 10 ^3/uL (0.4-5.4); Lymphocytes % (auto) 19.1 % (10.0-50.0); Mean Corpuscular Hemoglobin 32.4 pg (28.0-32.0); Mean Corpuscular Hgb Conc. 33.3 g/dL (32.0-36.0); Mean Corpuscular Volume 97.2 fL (80.0-100.0); Monocytes # (auto) 0.9 10 ^3/uL (0-1.3); Monocytes % (auto) 7.1 % (0.0-12.0); Neutrophils # (auto) 9.4 10 ^3/uL (1.6-8.6); Neutrophils % (auto) 72.8 % (37.0-80.0); Nucleated Red Blood Cells % 0.1 %; Red Blood Cells 2.96 10^6/uL (4.5-5.90); Red Cell Distribution Width 20.7 % (11.8-14.3)
[2021-03-08 06:22] LABS: Calcium 7.7 mg/dL (8.5-10.1); Potassium 3.5 mmol/L (3.5-5.1)
[2021-03-08] MEDS: ALBUTEROL SULF 2.5 MG/0.5ML(0.5%) NEB SOLN NEB SCH ×3 (06:29→19:28)
[2021-03-08] MEDS: IPRATROPIUM BROM 0.5 MG/2.5ML INH SOL NEB SCH ×3 (06:29→19:28)
[2021-03-08 09:00] VITALS: BP 128/88
[2021-03-08] MEDS: cefTRIAXone 1GM/50ML D5W 50 ML IV SCH (09:00)
[2021-03-08] MEDS: ENOXAPARIN SOD 40 MG/0.4 ML SYRINGE SC SCH (10:00)
[2021-03-08] MEDS: AZITHROMYCIN 500MG/ 250ML 250 ML IV SCH (10:00)
[2021-03-08] MEDS: PANTOPRAZOLE 40 MG/10 ML VIAL INJ IV SCH (10:00)
[2021-03-08] MEDS ORDERED: FUROSEMIDE 20 MG/2 ML VIAL IV ONE (11:45)
[2021-03-08] MEDS ORDERED: POTASSIUM CHL 20 Meq TABLET PO ONE (11:45)
[2021-03-08] MEDS ORDERED: CIPROFLOXACIN HCL 500 MG TAB PO ONE (11:45)
[2021-03-08] MEDS: Ensure HIGH Protein Chocolate 8oz Bottle PO SCH ×2 (12:25→18:00)
[2021-03-08 13:00] VITALS: BP 102/72
[2021-03-08 13:45] VITALS: BP 102/72
[2021-03-08 17:00] VITALS: BP 135/83
[2021-03-08] MEDS: TAMSULOSIN HYDROCHLORIDE 0.4 MG CAP PO SCH (18:00)
[2021-03-08] MEDS: CIPROFLOXACIN HCL 500 MG TAB PO SCH (21:59)
[2021-03-08 22:00] VITALS: BP 113/76
[2021-03-09] MEDS: HYDROcodone-ACET 5/325MG TAB PO PRN ×2 (03:53→23:09)
[2021-03-09 05:00] VITALS: BP 117/56
[2021-03-09] MEDS: LACTULOSE 20Gm/30ML SOLN PO SCH ×3 (06:00→18:00)
[2021-03-09 06:18] LABS: Basophils # (auto) 0 10 ^3/uL (0-0.2); Basophils % (auto) 0.4 % (0.0-2.0); Eosinophils # (auto) 0.1 10 ^3/uL (0-0.8); Eosinophils % (auto) 1.8 % (0.0-7.0); Hematocrit 29.3 % (41.0-53.0); Lymphocytes # (auto) 1.9 10 ^3/uL (0.4-5.4); Lymphocytes % (auto) 22.6 % (10.0-50.0); Mean Corpuscular Hgb Conc. 34.2 g/dL (32.0-36.0); Mean Corpuscular Volume 96.4 fL (80.0-100.0); Monocytes # (auto) 0.8 10 ^3/uL (0-1.3); Monocytes % (auto) 10.1 % (0.0-12.0); Neutrophils # (auto) 5.4 10 ^3/uL (1.6-8.6); Neutrophils % (auto) 65.1 % (37.0-80.0); Red Blood Cells 3.04 10^6/uL (4.5-5.90); White Blood Cell 8.3 10^3/uL (4.4-10.8)
[2021-03-09] MEDS: MORPHINE SULFATE INJECTION 2 MG/ML SYRG IV PRN ×2 (06:21→18:44)
[2021-03-09] MEDS: VANCOMYCIN 750mg/250ml 250 ML IV SCH ×2 (06:22→18:13)
[2021-03-09 06:26] LABS: Red Cell Distribution Width 20.9 % (11.8-14.3)
[2021-03-09 06:38] LABS: Calcium 7.7 mg/dL (8.5-10.1); Potassium 3.2 mmol/L (3.5-5.1)
[2021-03-09] MEDS: IPRATROPIUM BROM 0.5 MG/2.5ML INH SOL NEB SCH ×3 (06:45→20:42)
[2021-03-09] MEDS: ALBUTEROL SULF 2.5 MG/0.5ML(0.5%) NEB SOLN NEB SCH ×3 (06:45→20:41)
[2021-03-09] MEDS: Ensure HIGH Protein Chocolate 8oz Bottle PO SCH ×3 (08:00→18:14)
[2021-03-09 09:00] VITALS: BP 111/63
[2021-03-09] MEDS: CIPROFLOXACIN HCL 500 MG TAB PO SCH ×2 (10:32→23:08)
[2021-03-09] MEDS ORDERED: POTASSIUM CHL 20 Meq TABLET PO ONE (11:30)
[2021-03-09 13:00] VITALS: BP 128/95
[2021-03-09] MEDS: ENOXAPARIN SOD 40 MG/0.4 ML SYRINGE SC SCH (14:28)
[2021-03-09 17:00] VITALS: BP 101/51
[2021-03-09] MEDS: TAMSULOSIN HYDROCHLORIDE 0.4 MG CAP PO SCH (18:14)
[2021-03-09 22:00] VITALS: BP 95/59
[2021-03-10] VITALS (7 sets, daily range): BP systolic 75–115; BP diastolic 43–73
[2021-03-10] MEDS: LACTULOSE 20Gm/30ML SOLN PO SCH ×5 (06:00→23:51)
[2021-03-10] MEDS: VANCOMYCIN 750mg/250ml 250 ML IV SCH ×2 (06:03→17:36)
[2021-03-10 06:14] LABS: Calcium 7.5 mg/dL (8.5-10.1); Potassium 4.3 mmol/L (3.5-5.1)
[2021-03-10] MEDS: ALBUTEROL SULF 2.5 MG/0.5ML(0.5%) NEB SOLN NEB SCH ×3 (06:19→19:30)
[2021-03-10] MEDS: IPRATROPIUM BROM 0.5 MG/2.5ML INH SOL NEB SCH ×3 (06:19→19:30)
[2021-03-10 06:21] LABS: BUN/Creatinine Ratio 35.6
[2021-03-10] MEDS: Ensure HIGH Protein Chocolate 8oz Bottle PO SCH ×2 (08:00→13:05)
[2021-03-10] MEDS: CIPROFLOXACIN HCL 500 MG TAB PO SCH ×2 (09:50→21:43)
[2021-03-10] MEDS: ENOXAPARIN SOD 40 MG/0.4 ML SYRINGE SC SCH (09:51)
[2021-03-10] MEDS: HYDROcodone-ACET 5/325MG TAB PO PRN (09:51)
[2021-03-10] MEDS ORDERED: SODIUM CHLORIDE 0.9% 1,000 ML IV ONE (12:30)
[2021-03-10] MEDS: TAMSULOSIN HYDROCHLORIDE 0.4 MG CAP PO SCH (17:36)
[2021-03-10] MEDS: MORPHINE SULFATE INJECTION 2 MG/ML SYRG IV PRN (17:36)
[2021-03-11 04:54] VITALS: BP 123/80
[2021-03-11] MEDS: LACTULOSE 20Gm/30ML SOLN PO SCH ×4 (06:00→23:49)
[2021-03-11] MEDS: IPRATROPIUM BROM 0.5 MG/2.5ML INH SOL NEB SCH ×3 (06:32→19:47)
[2021-03-11] MEDS: ALBUTEROL SULF 2.5 MG/0.5ML(0.5%) NEB SOLN NEB SCH ×3 (06:32→19:47)
[2021-03-11] MEDS: VANCOMYCIN 750mg/250ml 250 ML IV SCH ×2 (06:44→17:46)
[2021-03-11 09:00] VITALS: BP 112/86
[2021-03-11] MEDS: Ensure HIGH Protein Chocolate 8oz Bottle PO SCH ×4 (09:36→18:38)
[2021-03-11] MEDS: CIPROFLOXACIN HCL 500 MG TAB PO SCH ×2 (09:36→20:47)
[2021-03-11] MEDS: ENOXAPARIN SOD 40 MG/0.4 ML SYRINGE SC SCH (09:37)
[2021-03-11] MEDS: HYDROcodone-ACET 5/325MG TAB PO PRN ×2 (09:37→20:48)
[2021-03-11 10:19] VITALS: BP 112/86
[2021-03-11 12:49] VITALS: BP 83/48
[2021-03-11 16:40] VITALS: BP 104/65
[2021-03-11] MEDS: TAMSULOSIN HYDROCHLORIDE 0.4 MG CAP PO SCH (17:46)
[2021-03-11 22:00] VITALS: BP 109/78
[2021-03-12] MEDS: HYDROcodone-ACET 5/325MG TAB PO PRN ×2 (03:28→12:48)
[2021-03-12] MEDS: LACTULOSE 20Gm/30ML SOLN PO SCH ×3 (05:44→18:00)
[2021-03-12] MEDS: VANCOMYCIN 750mg/250ml 250 ML IV SCH ×2 (05:45→18:13)
[2021-03-12] MEDS: MORPHINE SULFATE INJECTION 2 MG/ML SYRG IV PRN ×2 (05:52→10:11)
[2021-03-12 05:56] VITALS: BP 110/76
[2021-03-12] MEDS: ALBUTEROL SULF 2.5 MG/0.5ML(0.5%) NEB SOLN NEB SCH ×3 (06:34→19:44)
[2021-03-12] MEDS: IPRATROPIUM BROM 0.5 MG/2.5ML INH SOL NEB SCH ×3 (06:35→19:44)
[2021-03-12 09:00] VITALS: BP 105/69
[2021-03-12] MEDS: CIPROFLOXACIN HCL 500 MG TAB PO SCH ×2 (09:43→21:26)
[2021-03-12] MEDS: ENOXAPARIN SOD 40 MG/0.4 ML SYRINGE SC SCH (09:43)
[2021-03-12] MEDS: Ensure HIGH Protein Chocolate 8oz Bottle PO SCH ×3 (09:43→18:13)
[2021-03-12 13:00] VITALS: BP 116/70
[2021-03-12] MEDS: GABAPENTIN 100 MG CAP PO SCH ×2 (15:06→21:26)
[2021-03-12 17:00] VITALS: BP 105/74
[2021-03-12] MEDS: TAMSULOSIN HYDROCHLORIDE 0.4 MG CAP PO SCH (18:13)
[2021-03-12] MEDS: MORPHINE SULF 15mg ER tab PO SCH (21:27)
[2021-03-13] VITALS (7 sets, daily range): BP systolic 74–122; BP diastolic 47–86
[2021-03-13] MEDS: LACTULOSE 20Gm/30ML SOLN PO SCH ×4 (06:00→18:00)
[2021-03-13] MEDS: VANCOMYCIN 750mg/250ml 250 ML IV SCH ×2 (06:06→18:00)
[2021-03-13] MEDS: GABAPENTIN 100 MG CAP PO SCH ×3 (06:06→21:55)
[2021-03-13] MEDS: ALBUTEROL SULF 2.5 MG/0.5ML(0.5%) NEB SOLN NEB SCH ×4 (06:10→19:33)
[2021-03-13] MEDS: IPRATROPIUM BROM 0.5 MG/2.5ML INH SOL NEB SCH ×4 (06:10→19:33)
[2021-03-13] MEDS: Ensure HIGH Protein Chocolate 8oz Bottle PO SCH ×3 (09:52→19:04)
[2021-03-13] MEDS: CIPROFLOXACIN HCL 500 MG TAB PO SCH ×2 (09:52→21:55)
[2021-03-13] MEDS: MORPHINE SULF 15mg ER tab PO SCH ×3 (09:53→23:09)
[2021-03-13] MEDS: ENOXAPARIN SOD 40 MG/0.4 ML SYRINGE SC SCH (09:53)
[2021-03-13] MEDS: HYDROcodone-ACET 5/325MG TAB PO PRN (15:49)
[2021-03-13] MEDS: TAMSULOSIN HYDROCHLORIDE 0.4 MG CAP PO SCH (18:23)
[2021-03-13] MEDS: SODIUM CHLOR 0.9% PF (SALINE LOCK) 10ML VIAL/SYR IV SCH (21:55)
[2021-03-13] MEDS: DAKINS QUARTER STR 0.125% (NaHypochlorite) 473 ML TOPICAL SOL TOP SCH (21:57)
[2021-03-13] MEDS ORDERED: ALBUMIN 5% 250 ML IV ONE (22:30)
[2021-03-14] VITALS (8 sets, daily range): BP systolic 71–118; BP diastolic 52–87
[2021-03-14] MEDS: LACTULOSE 20Gm/30ML SOLN PO SCH ×3 (05:57→11:44)
[2021-03-14] MEDS: IPRATROPIUM BROM 0.5 MG/2.5ML INH SOL NEB SCH ×2 (06:00→12:00)
[2021-03-14] MEDS: ALBUTEROL SULF 2.5 MG/0.5ML(0.5%) NEB SOLN NEB SCH ×2 (06:00→12:00)
[2021-03-14] MEDS: GABAPENTIN 100 MG CAP PO SCH ×2 (06:07→14:07)
[2021-03-14 06:25] LABS: Basophils # (auto) 0.1 10 ^3/uL (0-0.2); Basophils % (auto) 1.4 % (0.0-2.0); Eosinophils # (auto) 0.4 10 ^3/uL (0-0.8); Eosinophils % (auto) 6.4 % (0.0-7.0); Hematocrit 27.3 % (41.0-53.0); Hemoglobin 9.5 g/dL (13.5-17.5); Lymphocytes # (auto) 2.6 10 ^3/uL (0.4-5.4); Lymphocytes % (auto) 38.5 % (10.0-50.0); Mean Corpuscular Hemoglobin 33.2 pg (28.0-32.0); Mean Corpuscular Hgb Conc. 34.9 g/dL (32.0-36.0); Mean Corpuscular Volume 95.1 fL (80.0-100.0); Monocytes # (auto) 0.8 10 ^3/uL (0-1.3); Monocytes % (auto) 12.3 % (0.0-12.0); Neutrophils # (auto) 2.8 10 ^3/uL (1.6-8.6); Neutrophils % (auto) 41.4 % (37.0-80.0); Red Blood Cells 2.87 10^6/uL (4.5-5.90); Red Cell Distribution Width 21.1 % (11.8-14.3); White Blood Cell 6.8 10^3/uL (4.4-10.8)
[2021-03-14] MEDS ORDERED: SODIUM CHLORIDE 0.9% 500 ML IV ONE (08:45)
[2021-03-14] MEDS: Ensure HIGH Protein Chocolate 8oz Bottle PO SCH ×2 (08:49→12:56)
[2021-03-14] MEDS: MORPHINE SULF 15mg ER tab PO SCH (10:00)
[2021-03-14] MEDS: SODIUM CHLOR 0.9% PF (SALINE LOCK) 10ML VIAL/SYR IV SCH (11:07)
[2021-03-14] MEDS ORDERED: VANCOMYCIN 750mg/250ml 250 ML IV ONE (11:15)
[2021-03-14] MEDS: CIPROFLOXACIN HCL 500 MG TAB PO SCH (11:16)
[2021-03-14] MEDS: ENOXAPARIN SOD 40 MG/0.4 ML SYRINGE SC SCH (11:17)
[2021-03-14] MEDS: DAKINS QUARTER STR 0.125% (NaHypochlorite) 473 ML TOPICAL SOL TOP SCH (12:03)
[2021-03-14] MEDS ORDERED: VANCOMYCIN 750mg/250ml 250 ML IV SCH (23:00)
== END 2021-03-14 15:45 | disposition home health service (06) | DRG 871 ==
LOC: EDBD 14:45 → ER 14:45 → TELE 20:07 → ICU WEST 03-06 01:50 → TELE-WESTW 03-06 21:15
PROVIDERS: ADMIT Nurse Practitioner Acute Care; ATTEND Internal Medicine
PROC: 05H933Z Insertion of Infusion Device into Right Brachial Vein, Percutaneous Approach (ICD-10-PCS; principal; 2021-03-06)
PROC: B54MZZA Ultrasonography of Right Upper Extremity Veins, Guidance (ICD-10-PCS; 2021-03-06)
PROC: 02H633Z Insertion of Infusion Device into Right Atrium, Percutaneous Approach (ICD-10-PCS; 2021-03-13)
PROC: 02WYX3Z Revision of Infusion Device in Great Vessel, External Approach (ICD-10-PCS; 2021-03-14)
DX: A41.9 Sepsis, unspecified organism (principal); R65.21 Severe sepsis with septic shock; J15.6 Pneumonia due to other Gram-negative bacteria; E43 Unspecified severe protein-calorie malnutrition; J96.21 Acute and chronic respiratory failure with hypoxia; J15.212 Pneumonia due to Methicillin resistant Staphylococcus aureus; N17.9 Acute kidney failure, unspecified; J44.0 Chronic obstructive pulmonary disease with (acute) lower respiratory infection; Z68.1 Body mass index [BMI] 19.9 or less, adult; Z20.822 Contact with and (suspected) exposure to COVID-19; R62.7 Adult failure to thrive; I48.91 Unspecified atrial fibrillation; E87.5 Hyperkalemia; N30.90 Cystitis, unspecified without hematuria; I10 Essential (primary) hypertension; L97.529 Non-pressure chronic ulcer of other part of left foot with unspecified severity; B95.2 Enterococcus as the cause of diseases classified elsewhere; B96.20 Unspecified Escherichia coli [E. coli] as the cause of diseases classified elsewhere; B95.7 Other staphylococcus as the cause of diseases classified elsewhere; B96.5 Pseudomonas (aeruginosa) (mallei) (pseudomallei) as the cause of diseases classified elsewhere; Z96.643 Presence of artificial hip joint, bilateral; K80.20 Calculus of gallbladder without cholecystitis without obstruction; B96.1 Klebsiella pneumoniae [K. pneumoniae] as the cause of diseases classified elsewhere; M19.90 Unspecified osteoarthritis, unspecified site; G89.29 Other chronic pain; Z86.718 Personal history of other venous thrombosis and embolism; Z86.711 Personal history of pulmonary embolism; Z79.01 Long term (current) use of anticoagulants; Z80.1 Family history of malignant neoplasm of trachea, bronchus and lung; Z82.49 Family history of ischemic heart disease and other diseases of the circulatory system; Z79.899 Other long term (current) drug therapy
CPT/HCPCS: 36415; 36569; 36600; 71045; 73630; 73700; 80048; 80053; 80202; 81001; 82565; 82805; 82962; 83605; 83880; 84484; 85007; 85025; 85027; 85049; 85379; 85610; 87040; 87077; 87081; 87086; 87088; 87186; 87205; 87426; 93005; 94640; 96365; 96367; 96368; 96375; 97110; 97116; 97530; C9113; G0378; J0696; J1815; J3490